=== PATIENT | female | born 1965 | race African-American/Black ===

== ENCOUNTER 2020-10-01 13:31 | Emergency (ER) | payer MEDICAID ==
[~2020-10-01] VITALS: Ht 172.7 cm; Wt 72.0 kg
[2020-10-01] MEDS ORDERED: IBUPROFEN 600MG TABLET PO STA (14:46)
[2020-10-01 15:12] LABS: BASOPHILS % 0.3 % (0.0-2.0); HEMATOCRIT. 36.1 % (36.0-48.0); HEMOGLOBIN. 12.7 g/dL (12.0-16.0); LYMPHOCYTES % 16.7 % (20.0-50.0); MEAN CORPUSCULAR HEMOGLOBIN 32.2 pg (28.0-32.0); MEAN CORPUSCULAR VOLUME 91.4 fL (81.0-99.0); MEAN PLATELET VOLUME 8.3 fl (7.4-10.4); MONOCYTES % 9.7 % (2.0-8.0); NEUTROPHILS % 72.3 % (40.0-76.0); PLATELET 312 x1000/uL (130-400); RED BLOOD CELL COUNT 3.95 mill/uL (4.2-5.4); RED CELL DISTRIBUTION WIDTH 14.2 % (11.6-14.6)
[2020-10-01 15:13] LABS: CHLORIDE 103 mEq/L (98-107)
[2020-10-01 15:19] LABS: ETHANOL BLOOD < 10 mg/dL
[2020-10-01 15:46] LABS: CLARITY URINE CLEAR (CLEAR); COLOR URINE YELLOW (YELLOW); KETONES URINE 1+ (NEGATIVE); LEUKOCYTE ESTERASE URINE 2+ (NEGATIVE); NITRITE URINE NEGATIVE (NEGATIVE); OCCULT BLOOD URINE NEGATIVE (NEGATIVE); PROTEIN URINE TRACE (NEGATIVE); SPECIFIC GRAVITY URINE 1.028 (1.005-1.030); UROBILINOGEN URINE 0.2 E.U./dL (0.2-1.0)
[2020-10-01 16:01] LABS: *COCAINE SCREEN URINE NEGATIVE (NEGATIVE); CANNABINOID URINE SCREEN NEGATIVE (NEGATIVE); METHADONE URINE SCREEN NEGATIVE (NEGATIVE); OPIATES URINE SCREEN NEGATIVE (NEGATIVE); PHENCYCLIDINE URINE SCREEN NEGATIVE (NEGATIVE)
[2020-10-01 16:02] LABS: *AMPHETAMINES SCREEN URINE PRESUMTIVE POSITIVE (NEGATIVE); *BARBITURATES SCREEN URINE NEGATIVE (NEGATIVE); *BENZODIAZEPINES SCREEN URINE NEGATIVE (NEGATIVE)
[2020-10-01] MEDS ORDERED: NITROFURANTOIN 100MG M/M CAPSULE PO SCH (21:00)
[2020-10-02] MEDS ORDERED: NITROFURANTOIN 100MG M/M CAPSULE PO ONE (16:00)
[2020-10-03] MEDS ORDERED: NITR-87 MT (15:00)
[2020-10-03 15:58] VITALS: BP 112/68
[2020-10-03] MEDS ORDERED: NITROFURANTOIN 100MG M/M CAPSULE PO SCH (21:00)
== END 2020-10-03 15:59 | disposition home or self-care (01) ==
LOC: ER 13:31
DX: T43.621A Poisoning by amphetamines, accidental (unintentional), initial encounter (principal); N30.00 Acute cystitis without hematuria; R45.851 Suicidal ideations; R10.33 Periumbilical pain; F31.9 Bipolar disorder, unspecified; Z75.1 Person awaiting admission to adequate facility elsewhere; Z59.0 Homelessness; Y92.488 Other paved roadways as the place of occurrence of the external cause
CPT/HCPCS: 36415; 74176; 80053; 80305; 80307; 80320; 80329; 81003; 85025; 99285; G0480